=== PATIENT | male | born 1995 | race Caucasian/White ===

== ENCOUNTER 2017-12-02 20:48 | Emergency (ER) | payer MEDICAID ==
[~2017-12-02] VITALS: Ht 182.9 cm; Wt 97.5 kg
[2017-12-02 20:56] VITALS: BP 134/80
--- NOTE | 2017-12-02 20:58 | NUR ---
TO LOBBY A/W BED AND XRAY AMB, VSEzio, ERMD NOTED
--- NOTE | 2017-12-02 21:10 | NUR ---
21/M CAME IN W C/O PRODUCTIVE COUGH X 1 WEEK. REPORTS HEADACHE, RUNNY NOSE AND NOSE BLEED. NO BLEEDING NOTED AT THIS TIME. ALL LUNG SOUNDS CBTA, 18RR EVEN AND UNLABORED. DENIES PMH
--- NOTE | 2017-12-02 21:10 | NUR ---
PATIENT AMBULATED TO ER BED 2.
[2017-12-02 22:14] VITALS: BP 128/78
--- NOTE | 2017-12-02 22:14 | NUR ---
Patient discharged with v/s stable. Written and verbal after care instructions given and explained. Patient alert, oriented and verbalized understanding of instructions. Ambulatory with steady gait. All questions addressed prior to discharge. ID band removed. Patient advised to follow up with PMD. Rx of AZITHROMYCIN AND PROMETHAZINE HYDROCHLORIDE given. Patient educated on indication of medication including possible reaction and side effects. Opportunity to ask questions provided and answered.
== END 2017-12-02 22:14 | disposition home or self-care (01) ==
LOC: MED 20:48
DX: J02.9 Acute pharyngitis, unspecified (principal)
CPT/HCPCS: 71045; 87081; 99285; Q0092